=== PATIENT | female | born 1965 | race Caucasian/White ===

== ENCOUNTER 2017-11-24 13:06 | Emergency (ER) | payer OTHER ==
[2017-11-24 13:06] VITALS: BMI 35.5
[2017-11-24 13:19] VITALS: TEMP 97.6
--- NOTE | 2017-11-24 13:32 | ED PDOC ---
HPI: Abdomen <Amita Urena - Last Filed: 11/24/17 15:04> <Collins England - Last Filed: 11/24/17 17:58> Chief Complaint (Nursing): Abdominal Pain Additional Complaint(s): 52yo F with PMHx DCIS, left meniscal tear c/o abd pain. abd pain x2 days, starting last night, LLQ, no radiation, no fever/chills/n/v/diarrhea. BM today, regular, no blood/pain. Denies new foods, sick contacts, or travel. Denies abd surgeries. Last colonoscopy 2 years ago WNL, polyps removed, next screening in 10 years. Tolerating PO. Taking diclofenac, gabapentin, percocet x2 weeks after left meniscus repair. postmenopausal age 51yo. PCP: none (Amita rUena) Supervising Attending Note <Amita Urena - Last Filed: 11/24/17 15:04> - Supervising Attending Note The Documented history was done by the: Physician Cloth Finishing Range Operator The documented physical exam was done by the: Physician Cloth Finishing Range Operator The documented procedures were done by the: Physician Cloth Finishing Range Operator - Attestation: I have personally seen and examined this patient.: Yes I have fully participated in the care of the patient.: Yes I have reviewed all pertinent clinical information: Yes <Collins England - Last Filed: 11/24/17 17:58> - Notes: Notes:: LLQ pain. (Collins England) Past Medical History Reviewed: Historical Data, Nursing Documentation, Vital Signs - Family History Family History: States: Unknown Family Hx <Amita Urena - Last Filed: 11/24/17 15:04> <Collins [place] - Last Filed: 11/24/17 17:58> Vital Signs: Last Vital Signs Temp 97.6 F 11/24/17 17:08 Pulse 77 11/24/17 17:08 Resp 16 11/24/17 17:08 BP 119/72 11/24/17 17:08 Pulse Ox 97 11/24/17 17:08 - Home Medications Home Medications: Ambulatory Orders Medication Instructions Recorded Biotin 10,000 mcg PO 09/15/17 Diclofenac Sodium [Voltaren] 09/15/17 Gabapentin [Neurontin] 800 mg PO 09/15/17 Tamoxifen Citrate 20 mg PO 09/15/17 Ciprofloxacin HCl [Cipro] 500 mg PO BID 7 Days tab 11/24/17 Metronidazole [Flagyl] 500 mg PO TID 7 Days tablet 11/24/17 - Allergies Allergies/Adverse Reactions: Allergies Allergy/AdvReac Type Severity Reaction Status Date / Time onion Allergy Uncoded 09/15/17 08:56 Review of Systems ROS Statement: Except As Marked, All Systems Reviewed And Found Negative Gastrointestinal: Positive for: Abdominal Pain Musculoskeletal: Positive for: Other (left knee pain s/p surgery) <RomelAmita - Last Filed: 11/24/17 15:04> Physical Exam - Reviewed Nursing Documentation Reviewed: Yes Vital Signs Reviewed: Yes - Physical Exam Appears: Positive for: Well, Non-toxic Head Exam: Positive for: ATRAUMATIC, NORMAL INSPECTION Skin: Positive for: Warm, Dry Eye Exam: Positive for: Normal appearance Neck: Positive for: Normal, Painless ROM, Supple Cardiovascular/Chest: Positive for: Regular Rate, Rhythm, Chest Non Tender Respiratory: Positive for: Normal Breath Sounds. Negative for: Decreased Breath Sounds Gastrointestinal/Abdominal: Positive for: Bowel Sounds, Soft, Tenderness (LLQ, LUQ, minimal suprapubic). Negative for: Mass, Distended, Guarding Back: Positive for: Normal Inspection. Negative for: L CVA Tenderness, R CVA Tenderness, Vertebral Tenderness Extremity: Positive for: Normal ROM. Negative for: Tenderness, Pedal Edema Lymphatic: Positive for: Normal Exam. Negative for: Adenopathy Neurologic/Psych: Positive for: Alert, Oriented <RomelMagdielstephanie - Last Filed: 11/24/17 15:04> - Physical Exam Respiratory: Positive for: Normal Breath Sounds Gastrointestinal/Abdominal: Positive for: Soft, Tenderness (LLQ) <Collins England M - Last Filed: 11/24/17 17:58> - Laboratory Results Result Diagrams: 11/24/17 14:11 11/24/17 14:11 - ECG O2 Sat by Pulse Oximetry: 99 <Amita - Last Filed: 11/24/17 15:04> - Laboratory Results Result Diagrams: 11/24/17 14:11 11/24/17 14:11 <Collins England M - Last Filed: 11/24/17 17:58> - Progress ED Course And Treament: 1754: Stable. Pain free. Fu with pcp. Tolerated PO. AAOx3. (Collins [place]) Medical Decision Making <Amita Urena - Last Filed: 11/24/17 15:04> <Collins [place] - Last Filed: 11/24/17 17:58> Medical Decision Makin DDx diverticulitis, diverticulosis, gastroenteritis, UTI CBC, CMP, u dip IVF bolus IV toradol 15mg x1 CT abd/pelvis with IV PO cont reassessment 1500 abd pain improved pending CT (Amita Urena) Disposition <Magdiel Urenag - Last Filed: 11/24/17 15:04> - Disposition Disposition: Routine/Home Disposition Time: 17:58 <Collins [place] - Last Filed: 11/24/17 17:58> - Clinical Impression Clinical Impression: Diverticulitis - Disposition Referrals: [facility] [place] [Outside] - 11/25/17 Leonid Snider MD [Staff Provider] - 11/25/17 Condition: STABLE Additional Instructions: Return if not better in 3 days. Prescriptions: Ciprofloxacin HCl [Cipro] 500 mg PO BID 7 Days tab Metronidazole [Flagyl] 500 mg PO TID 7 Days tablet Instructions: Diverticulitis Forms: [email or web address] (Bengali), [facility] ED School/Work Excuse
[2017-11-24] MEDS ORDERED: Sodium Chloride 0.9% 1,000 ML IV STA (13:35)
[2017-11-24] MEDS ORDERED: Iohexol 240 (50 ml) PO ONE (13:35)
[2017-11-24] MEDS ORDERED: Iohexol 240 (50 ml) ONE (13:52)
[2017-11-24 14:16] LABS: BASO # 0.1 K/uL (0.0-0.2); BASO % 0.8 % (0.0-2.0); EOS # 0.1 K/uL (0.0-0.7); EOS % 1.1 % (0.0-4.0); HEMOGLOBIN 13.2 g/dL (12.0-16.0); LYMPH # 2.2 K/uL (1.0-4.3); LYMPH % 26.2 % (20.0-40.0); MEAN CELL VOLUME 91.4 fl (81.0-99.0); MEAN CORPUSCULAR HEMOGLOBIN 31.4 pg (27.0-31.0); MEAN CORPUSCULAR HGB CONC 34.4 g/dL (33.0-37.0); MEAN PLATELET VOLUME 9.3 fl (7.2-11.7); MONO # 0.7 K/uL (0.0-0.8); MONO % 8.1 % (0.0-10.0); NEUT # 5.3 K/uL (1.8-7.0); NEUT % 63.8 % (50.0-75.0); RBC 4.2 Mil/uL (3.80-5.20); RED CELL DISTRIBUTION WIDTH 13.4 % (11.5-14.5); WHITE BLOOD COUNT 8.2 K/uL (4.8-10.8)
[2017-11-24 14:30] LABS: ALB/GLOB RATIO 1.3 (1.0-2.1); ALBUMIN 4.2 g/dL (3.5-5.0); ALT/SGPT 39 U/L (9-52); AST/SGOT 20 U/L (14-36); BLOOD UREA NITROGEN 17 mg/dl (7-17); CALCIUM 9.6 mg/dL (8.4-10.2); GFR AFRICAN-AMERICAN > 60; GFR NON-AFRICAN AMERICAN > 60
[2017-11-24] MEDS ORDERED: Iohexol 300 100 ML IJ ONE (16:21)
[2017-11-24 17:08] VITALS: BP 119/72; PULSE 77; RESP 16; O2SAT 97
--- NOTE | 2017-11-24 17:29 | CT ---
PROCEDURE: CT Abdomen and Pelvis with contrast HISTORY: Abdominal pain COMPARISON: None. TECHNIQUE: Contrast dose: 95 cc Omnipaque 300 chris Radiation dose: Total exam DLP = mGy-cm. This CT exam was performed using one or more of the following dose reduction techniques: Automated exposure control, adjustment of the mA and/or kV according to patient size, and/or use of iterative reconstruction technique. FINDINGS: LOWER THORAX: Unremarkable. LIVER: Unremarkable. No gross lesion or ductal dilatation. GALLBLADDER AND BILE DUCTS: Cholelithiasis without CT evidence of acute cholecystitis. [place] PANCREAS: Unremarkable. No gross lesion or ductal dilatation. SPLEEN: Unremarkable. ADRENALS: Unremarkable. No mass. KIDNEYS AND URETERS: Unremarkable. No hydronephrosis. No solid mass. VASCULATURE: Unremarkable. No aortic aneurysm. BOWEL: Segmental diverticulitis affecting distal descending colon and adjacent proximal sigmoid. Discharge segmental inflammatory process extends over a distance of approximately 7 cm. No loculated air, free air, drainable collection. APPENDIX: Normal appendix. PERITONEUM: Unremarkable. No free fluid. No free air. LYMPH NODES: Unremarkable. No enlarged lymph nodes. BLADDER: Unremarkable. REPRODUCTIVE: Unremarkable. Intrauterine contraceptive device (IUD) identified BONES: No acute fracture. OTHER FINDINGS: None. IMPRESSION: Acute sigmoid diverticulitis. Cholelithiasis without CT evidence of acute cholecystitis.
== END 2017-11-24 18:02 | disposition home or self-care (01) ==
LOC: H.ER 13:06
DX: K57.32 Diverticulitis of large intestine without perforation or abscess without bleeding (principal)
CPT/HCPCS: 74177; 80053; 81025; 85025; 96361; 96374; 99285; J1885; J7040; Q9966; Q9967